=== PATIENT | female | born 1990 | race Caucasian/White ===

== ENCOUNTER 2018-03-26 16:07 | Emergency (ER) | payer MEDICAID ==
[~2018-03-26] VITALS: Ht 170.2 cm; Wt 69.2 kg
[~2018-03-26 16:07] MED LIST: NO HOME MEDS
[2018-03-26 16:15] VITALS: BP 117/81
[2018-03-26 16:39] LABS: CLARITY,URINE CLOUDY (Clear); GLUCOSE, URINE NEGATIVE (Neg); KETONES,URINE TRACE mg/dl (Neg); LEUKOCYTE ESTERASE ,URINE MODERATE (Neg); NITRITES, URINE NEGATIVE (Neg); OCCULT BLOOD,URINE LARGE (Neg); PROTEIN,URINE 100 mg/dl (Neg)
[2018-03-26 16:40] LABS: COLOR,URINE Amber (Yellow); UA COLLECTION TYPE CLN CATCH MIDSTREAM; URINE HCG NEGATIVE (NEG)
[2018-03-26] MEDS ORDERED: CEPH-572 PO (16:48)
[2018-03-26] MEDS ORDERED: PHEN-716 PO (16:48)
[2018-03-26 16:53] LABS: BACTERIA,URINE 1+ /HPF (Neg); MUCUS STRANDS MANY /LPF (Neg); RBC,URINE TNTC /HPF (0-2); SQUAMOUS EPITHELIAL CELL,UR MODERATE /LPF (FEW); TRANSITIONAL EPI CELLS,URINE FEW /HPF
== END 2018-03-26 17:05 | disposition home or self-care (01) ==
LOC: ER 16:08
DX: N39.0 Urinary tract infection, site not specified (principal); G89.29 Other chronic pain; Z79.899 Other long term (current) drug therapy
CPT/HCPCS: 81001; 81025; 87077; 87088; 87186; 99284

== ENCOUNTER 2018-11-05 19:31 | Emergency (ER) | payer MEDICAID ==
[~2018-11-05] VITALS: Ht 170.2 cm; Wt 61.3 kg
[~2018-11-05 19:31] MED LIST changes: +PHEN-716 PO
[2018-11-05 19:35] VITALS: BP 117/71
[2018-11-05] MEDS ORDERED: predniSONE 20 mg tablet PO ONE (20:30)
== END 2018-11-05 21:09 | disposition home or self-care (01) ==
LOC: ER 19:31
DX: O99.711 Diseases of the skin and subcutaneous tissue complicating pregnancy, first trimester (principal); R21 Rash and other nonspecific skin eruption; L29.9 Pruritus, unspecified; G89.29 Other chronic pain; F17.200 Nicotine dependence, unspecified, uncomplicated; Z79.899 Other long term (current) drug therapy; Z3A.12 12 weeks gestation of pregnancy
CPT/HCPCS: 99282; J7512

== ENCOUNTER 2019-11-14 11:28 | Emergency (ER) | payer MEDICAID ==
[~2019-11-14] VITALS: Ht 170.2 cm; Wt 62.0 kg
[2019-11-14 11:35] VITALS: BP 124/48
== END 2019-11-14 15:29 | disposition home or self-care (01) ==
LOC: ER 11:29
DX: B34.9 Viral infection, unspecified (principal); G89.29 Other chronic pain; Z79.899 Other long term (current) drug therapy
CPT/HCPCS: 99281

== ENCOUNTER 2020-07-16 19:44 | Emergency (ER) | payer MEDICAID ==
[~2020-07-16] VITALS: Ht 170.2 cm; Wt 60.0 kg
[2020-07-16 19:55] VITALS: BP 122/82
[2020-07-16] MEDS ORDERED: penicillin V potassium 500mg tablet PO ONE (20:35)
[2020-07-16] MEDS ORDERED: clindamycin 150mg capsule PO ONE (20:40)
[2020-07-16] MEDS ORDERED: CLIN150C2 PO (20:49)
== END 2020-07-16 20:56 | disposition home or self-care (01) ==
LOC: ER 19:45
DX: K04.7 Periapical abscess without sinus (principal); G89.29 Other chronic pain; K46.9 Unspecified abdominal hernia without obstruction or gangrene; Z87.448 Personal history of other diseases of urinary system; Z79.2 Long term (current) use of antibiotics; Z79.899 Other long term (current) drug therapy
CPT/HCPCS: 99283

== ENCOUNTER 2021-04-27 05:11 | Emergency (ER) | payer MEDICAID ==
[~2021-04-27] VITALS: Ht 170.2 cm; Wt 53.6 kg
[2021-04-27 05:15] VITALS: BP 97/54
--- NOTE | 2021-04-27 06:13 | NUR ---
WAITING IN [place] IN THE [place]ING [place]
[2021-04-27 07:52] LABS: BASOPHILS % (AUTO) 0.1 % (0-1); EOSINOPHILS % (AUTO) 0.6 % (0-6); HEMATOCRIT 37.4 % (35.0-45.0); HEMOGLOBIN 12.6 g/dl (12.0-16.0); LYMPHOCYTES # (AUTO) 1.5 X10'3 (1.1-4.8); LYMPHOCYTES % (AUTO) 22.3 % (21-51); MEAN CORPUSCULAR HEMOGLOBIN 30.3 PG (27.0-31.0); MEAN CORPUSCULAR HGB CONC 33.7 g/dL (33.0-36.5); MEAN PLATELET VOLUME 7.8 FL (7.4-10.4); MONOCYTES # (AUTO) 0.5 X10'3 (0-0.9); MONOCYTES % (AUTO) 6.9 % (2-12); NEUTROPHILS # (AUTO) 4.8 X10'3 (1.8-7.7); NEUTROPHILS % (AUTO) 70.1 % (42-75); PLATELET COUNT 187 X10'3 (140-440); RED BLOOD COUNT 4.16 X10'6 (4.20-5.60); RED CELL DISTRIBUTION WIDTH 13.1 % (11.5-14.5); WHITE BLOOD COUNT 6.9 X10'3 (4.5-11.0)
[2021-04-27 07:56] LABS: CLARITY,URINE CLEAR (Clear); COLOR,URINE YELLOW (Yellow); GLUCOSE, URINE NEGATIVE (Neg); KETONES,URINE NEGATIVE (Neg); LEUKOCYTE ESTERASE ,URINE NEGATIVE (Neg); NITRITES, URINE NEGATIVE (Neg); OCCULT BLOOD,URINE NEGATIVE (Neg); PH,URINE 6.5 (4.8-8.0); PROTEIN,URINE NEGATIVE (Neg)
[2021-04-27 07:57] LABS: UA COLLECTION TYPE CLN CATCH MIDSTREAM
[2021-04-27 08:01] LABS: URINE HCG NEGATIVE (NEG)
[2021-04-27 08:08] LABS: ANION GAP 7 (8-16); BLOOD UREA NITROGEN 13 MG/DL (7-18); BUN/CREATININE RATIO 18.6 (6.6-38.0); CALCIUM 8.2 MG/DL (8.5-10.1); CHLORIDE 106 MMOL/L (99-107); GLUCOSE 87 MG/DL (70-104); POTASSIUM 4.4 MMOL/L (3.5-5.1); SODIUM 140 MMOL/L (135-145); TOTAL CARBON DIOXIDE 26.6 MMOL/L (24-32); eGFR > 90 ML/MIN
[2021-04-27 08:09] LABS: ALANINE AMINOTRANSFERASE 177 U/L (12-78); ALBUMIN 3.9 G/DL (3.4-5.0); ALBUMIN/GLOBULIN RATIO 1.3 (1.1-1.5); ALKALINE PHOSPHATASE 78 IU/L (46-116); ASPARTATE AMINO TRANSFERASE 245 U/L (10-37); BILIRUBIN,TOTAL 0.6 MG/DL (0.1-1.0); LIPASE 130 U/L (73-393)
[2021-04-27] MEDS ORDERED: ketorolac trometh. 30mg/ml inj. IV ONE (08:45)
[2021-04-27] MEDS ORDERED: normal saline 1000ml 1,000 ML IV ONE (08:45)
[2021-04-27] MEDS ORDERED: IBUP-1985 PO (09:15)
== END 2021-04-27 10:30 | disposition home or self-care (01) ==
LOC: ER 05:12
DX: K81.9 Cholecystitis, unspecified (principal); R10.11 Right upper quadrant pain; G89.29 Other chronic pain; Z87.440 Personal history of urinary (tract) infections; Z79.899 Other long term (current) drug therapy
CPT/HCPCS: 36415; 76700; 80053; 81003; 81025; 83690; 85025; 96361; 96374; 99284; J1885; J7030

== ENCOUNTER 2021-09-10 13:35 | Emergency (ER) | payer MEDICAID ==
[~2021-09-10] VITALS: Ht 170.2 cm; Wt 54.0 kg
[~2021-09-10 13:35] MED LIST changes: +IBUP-1985 PO
[2021-09-10 13:43] VITALS: BP 114/72
== END 2021-09-10 19:41 | disposition left against medical advice (07) ==
LOC: ER 13:35
DX: L08.9 Local infection of the skin and subcutaneous tissue, unspecified (principal); Z53.21 Procedure and treatment not carried out due to patient leaving prior to being seen by health care provider

== ENCOUNTER 2023-03-03 20:42 | Emergency (ER) | payer MEDICAID ==
[~2023-03-03] VITALS: Ht 170.2 cm; Wt 56.8 kg
[2023-03-03 20:45] VITALS: BP 145/92
[2023-03-03] MEDS ORDERED: PENICILLIN G BENZATHINE 2,400,000 UNIT/4 ML SYRINGE IM STA (21:34)
[2023-03-03] MEDS ORDERED: CefTRIAXone 1000mg IM Kit (w/lidocaine diluent) IM STA (21:34)
[2023-03-03] MEDS ORDERED: DOXYCYCLINE 100MG CAPSULE PO ONE (21:35)
[2023-03-03] MEDS ORDERED: DOXY-411 PO (21:56)
[2023-03-03 23:18] LABS: URINE HCG NEGATIVE (NEG)
[2023-03-03 23:24] LABS: CLARITY,URINE SLIGHTLY CLOUDY (Clear); COLOR,URINE YELLOW (Yellow); GLUCOSE, URINE NEGATIVE (Neg); KETONES,URINE TRACE mg/dl (Neg); LEUKOCYTE ESTERASE ,URINE NEGATIVE (Neg); NITRITES, URINE NEGATIVE (Neg); OCCULT BLOOD,URINE NEGATIVE (Neg); PROTEIN,URINE NEGATIVE (Neg); UA COLLECTION TYPE VOIDED
[2023-03-03 23:31] LABS: BACTERIA,URINE FEW /HPF (Neg); CAL OXALATE CRYSTALS 2+ /HPF (NEGATIVE); MUCUS STRANDS MANY /LPF (Neg); RBC,URINE NONE SEEN /HPF (0-2); SQUAMOUS EPITHELIAL CELL,UR MANY /LPF (FEW)
== END 2023-03-03 22:13 | disposition home or self-care (01) ==
LOC: ER 20:43
DX: Z11.3 Encounter for screening for infections with a predominantly sexual mode of transmission (principal); N94.10 Unspecified dyspareunia; R30.9 Painful micturition, unspecified; G89.29 Other chronic pain; Z79.2 Long term (current) use of antibiotics; Z87.440 Personal history of urinary (tract) infections; Z87.19 Personal history of other diseases of the digestive system; Z79.899 Other long term (current) drug therapy
CPT/HCPCS: 36415; 81001; 81025; 86592; 87491; 87591; 96372; 99283; J0696

== ENCOUNTER 2023-05-21 18:41 | Emergency (ER) | payer MEDICAID ==
[~2023-05-21] VITALS: Ht 170.2 cm; Wt 56.8 kg
[2023-05-21 18:52] VITALS: BP 109/67; PULSE 122; RESP 18; TEMP 99.6; O2SAT 99
[2023-05-21] MEDS ORDERED: dexamethasone 4mg tablet PO ONE (21:05)
[2023-05-21] MEDS ORDERED: azithromycin 250mg tablet PO ONE (21:05)
[2023-05-21] MEDS ORDERED: PRED20TA PO (21:32)
[2023-05-21] MEDS ORDERED: IBUP-1985 PO (21:32)
[2023-05-21] MEDS ORDERED: AZIT-164 PO (21:32)
[2023-05-21] MEDS ORDERED: ALBU8HFA PO (21:32)
[2023-05-21] MEDS ORDERED: LORazepam 1 MG tablet PO ONE (22:05)
== END 2023-05-21 22:29 | disposition home or self-care (01) ==
LOC: ER 18:42
DX: U07.1 COVID-19 (principal); R09.81 Nasal congestion; Z79.2 Long term (current) use of antibiotics; Z79.1 Long term (current) use of non-steroidal anti-inflammatories (NSAID)
CPT/HCPCS: 36415; 87502; 87503; 87811; 99284

== ENCOUNTER 2023-10-12 14:37 | Emergency (ER) | payer MEDICAID ==
[~2023-10-12] VITALS: Ht 170.2 cm; Wt 57.0 kg
[2023-10-12 15:15] LABS: CLARITY,URINE Cloudy (Clear); COLOR,URINE ORANGE (Yellow); UA COLLECTION TYPE CLN CATCH MIDSTREAM
[2023-10-12 15:18] LABS: URINE HCG NEGATIVE (NEG)
[2023-10-12 15:24] LABS: MUCUS STRANDS MANY /LPF (Neg); SQUAMOUS EPITHELIAL CELL,UR MANY /LPF (FEW)
[2023-10-12 15:25] LABS: WBC,URINE 20-30 /HPF (0-4)
[2023-10-12 15:26] LABS: BACTERIA,URINE 1+ /HPF (Neg)
[2023-10-12] MEDS ORDERED: MUPI22OI30 TP (15:29)
[2023-10-12] MEDS ORDERED: CEPH500C2 PO (15:42)
[2023-10-12 16:01] VITALS: BP 114/72; PULSE 88; RESP 16; TEMP 98; O2SAT 97
== END 2023-10-12 16:03 | disposition home or self-care (01) ==
LOC: ER 14:38
DX: L03.116 Cellulitis of left lower limb (principal); G89.29 Other chronic pain; R35.0 Frequency of micturition; Z79.899 Other long term (current) drug therapy
CPT/HCPCS: 81001; 81025; 99283; A6258; A6449

== ENCOUNTER 2024-02-23 20:54 | Emergency (ER) | payer MEDICAID ==
[~2024-02-23] VITALS: Ht 170.2 cm; Wt 55.2 kg
[~2024-02-23 20:54] MED LIST changes: +CEPH500C2 PO; +MUPI22OI30 TP
[2024-02-23] MEDS ORDERED: CEPH-585 PO (23:59)
[2024-02-24] MEDS: bacitracin 15gm ointment TP ONE (00:08)
[2024-02-24 00:11] VITALS: BP 100/75; PULSE 88; RESP 18; TEMP 98.3; O2SAT 99
== END 2024-02-24 00:20 | disposition home or self-care (01) ==
LOC: ER 20:54
DX: L02.521 Furuncle right hand (principal); Z79.1 Long term (current) use of non-steroidal anti-inflammatories (NSAID); Z79.2 Long term (current) use of antibiotics; Z79.899 Other long term (current) drug therapy
CPT/HCPCS: 99283

== ENCOUNTER 2024-06-06 18:36 | Emergency (ER) | payer MEDICAID ==
[~2024-06-06] VITALS: Ht 170.2 cm; Wt 54.8 kg
[2024-06-06 18:52] VITALS: TEMP 97.7
[2024-06-06 19:31] LABS: BASOPHILS % (AUTO) 0.1 % (0-1); EOSINOPHILS # (AUTO) 0.1 X10'3 (0-0.9); HEMATOCRIT 37.5 % (35.0-45.0); HEMOGLOBIN 12.4 g/dl (12.0-16.0); LYMPHOCYTES # (AUTO) 1.6 X10'3 (1.1-4.8); LYMPHOCYTES % (AUTO) 27.9 % (21-51); MEAN CORPUSCULAR HEMOGLOBIN 30.9 PG (27.0-31.0); MEAN CORPUSCULAR HGB CONC 33.1 g/dL (33.0-36.5); MEAN CORPUSCULAR VOLUME 93.2 FL (78-98); MEAN PLATELET VOLUME 6.8 FL (7.4-10.4); MONOCYTES # (AUTO) 0.6 X10'3 (0-0.9); NEUTROPHILS # (AUTO) 3.4 X10'3 (1.8-7.7); PLATELET COUNT 232 X10'3 (140-440); RED BLOOD COUNT 4.02 X10'6 (4.20-5.60); RED CELL DISTRIBUTION WIDTH 13.5 % (11.5-14.5); WHITE BLOOD COUNT 5.6 X10'3 (4.5-11.0)
[2024-06-06 19:47] LABS: ALANINE AMINOTRANSFERASE 25 U/L (12-78); ALBUMIN 3.5 G/DL (3.4-5.0); ALKALINE PHOSPHATASE 56 IU/L (46-116); ANION GAP 12 (8-16); ASPARTATE AMINO TRANSFERASE 18 U/L (10-37); BILIRUBIN,TOTAL 0.1 MG/DL (0.1-1.0); BLOOD UREA NITROGEN 13 MG/DL (7-18); BUN/CREATININE RATIO 17.8 (10.0-20.0); CALCIUM 8.7 MG/DL (8.5-10.1); CHLORIDE 104 MMOL/L (99-107); CREATININE 0.73 MG/DL (0.40-0.90); GLUCOSE 96 MG/DL (70-104); POTASSIUM 3.1 MMOL/L (3.5-5.1); SODIUM 138 MMOL/L (135-145); TOTAL CARBON DIOXIDE 22.3 MMOL/L (24-32); TOTAL PROTEIN 7.1 G/DL (6.4-8.2); eCRCL 94 ML/MIN; eGFR > 90 ML/MIN
[2024-06-06 20:42] VITALS: BP 132/91; PULSE 107; RESP 16; O2SAT 92
[2024-06-06 20:58] LABS: BILIRUBIN,URINE NEGATIVE (Neg); CLARITY,URINE CLEAR (Clear); COLOR,URINE YELLOW (Yellow); GLUCOSE, URINE NEGATIVE (Neg); KETONES,URINE NEGATIVE (Neg); LEUKOCYTE ESTERASE ,URINE NEGATIVE (Neg); NITRITES, URINE NEGATIVE (Neg); OCCULT BLOOD,URINE NEGATIVE (Neg); PROTEIN,URINE NEGATIVE (Neg); UROBILINOGEN,URINE 0.2 E.U/dL (0.2-1.0)
[2024-06-06 21:00] LABS: UA COLLECTION TYPE CLN CATCH MIDSTREAM
[2024-06-06 21:03] LABS: URINE HCG NEGATIVE (NEG)
[2024-06-06 21:10] LABS: URINE AMPHETAMINE SCREEN POSITIVE (Neg); URINE BARBITUATE SCREEN NEGATIVE (Neg); URINE BENZODIAZEPINES SCREEN NEGATIVE (Neg); URINE CANNABINOID SCREEN POSITIVE (Neg); URINE COCAINE SCREEN NEGATIVE (Neg); URINE METHADONE SCREEN NEGATIVE (Neg); URINE OPIATE SCREEN NEGATIVE (Neg); URINE PHENCYCLIDINE SCREEN NEGATIVE (Neg)
[2024-06-09 11:13] LABS: CHLAMYDIA TRACHOMATIS, NAA Negative (Negative)
== END 2024-06-06 21:33 | disposition home or self-care (01) ==
LOC: ER 18:36
DX: M54.50 Low back pain, unspecified (principal); Z88.1 Allergy status to other antibiotic agents; Z88.6 Allergy status to analgesic agent; Z87.440 Personal history of urinary (tract) infections
CPT/HCPCS: 36415; 80053; 80305; 81003; 81025; 85025; 87491; 99283

== ENCOUNTER 2025-02-12 17:45 | Emergency (ER) | payer MEDICAID ==
[~2025-02-12] VITALS: Ht 165.1 cm; Wt 57.7 kg
[2025-02-12 17:49] VITALS: TEMP 97
[2025-02-12 18:47] LABS: HCG SERUM QL POSITIVE
--- NOTE | 2025-02-12 19:21 | Physician Documentation ---
History of Present Illness ~ Chief Complaint: Complications Stated Complaint: COMPLICATION Time Seen by MD: 19:08 Primary Medical Doctor: [facility] Source: patient Mode of Arrival: POV Exam Limitations: no limitations HPI Otherwise healthy in with spotting over the last couple of days. She states normally she has a period every month that is heavy and for the past couple months she has been having several small. Said it has been very light. She took 5 tests at home and they were all positive. No cramping or any other symptoms. States that she bled a lot with her 1st . She has an appointment with her doctor in 2 days. Medication Reconciliation Allergies: Coded Allergies: No Known Allergies (Unverified , 02/12/25) Miscellaneous Medications Home Med List (No Home Medications), (Reported) Discontinued Medications Cephalexin Monohydrate (Cephalexin), 1 CAP PO Q6H Discontinued Reason: completed med therapy Ibuprofen (Ibuprofen), 1 TAB PO Q8H Discontinued Reason: patient no longer taking Ibuprofen (Ibuprofen), 1 TAB PO Q8H Discontinued Reason: patient no longer taking Mupirocin* (Bactroban*), 1 APPLIC TP BID Discontinued Reason: patient no longer taking Phenazopyridine HCl (Pyridium), 1 TAB PO Q8H Discontinued Reason: patient no longer taking Past Medical History Past Medical History: Cholelithiasis, Hernia, UTI, Chronic Pain Past Surgical History: no surgical history Alcohol Use: None Lives with: Spouse Lives In: Home Review of Systems All Other Systems at this time: Reviewed and Negative Physical Exam Physical Exam Vital Signs: Temperature: 97.0, Source: Temporal, Heart Rate: 91, Respiratory Rate: 18, BP: 108/66, Pulse Oximetry: 100, Weight: 57.700 Physical Exam General: Alert and oriented x4, well-appearing, well-nourished, no acute distress HEENT: Normocephalic, atraumatic, no visible or palpable masses or depression, extraocular movements intact, PERRLA, no scleral icterus, Lungs: Clear , normal work of breathing Abdomen: Soft, nontender, Extremities: Full range of motion, Musculoskeletal: Normal gait, normal tone Neurologic: Cranial nerves 2-12 are intact, Psychiatric: Alert and oriented x4, judgment and insight normal, normal mood and affect Skin: Good turgor, no rashes Progress Results/Orders Results/Orders Completed Orders - PIPO MARSHALL MD Hcg Serum Qt (02/12/25 19:10) Cbc/Diff (02/12/25 19:10) Urinalysis, Cult If Indicated (02/12/25 19:10) Abo/Rh (02/12/25 19:10) Vital Signs 02/12/25 02/12/25 17:49 19:30 Temp 97.0 Pulse 91 65 Resp 18 15 B/P (MAP) 108/66 105/62 (76) Pulse Ox 100 99 Laboratory Tests Test 02/12/25 17:59 02/12/25 19:20 02/12/25 20:09 Human Chorionic Gonadotropin, Qual Positive White Blood Count 7.5 Red Blood Count 3.74 L Hemoglobin 11.4 L Hematocrit 33.8 L Mean Corpuscular Volume 90.4 Mean Corpuscular Hemoglobin 30.4 Mean Corpuscular Hemoglobin Concent 33.7 Red Cell Distribution Width 13.6 Platelet Count 220 Mean Platelet Volume 7.4 Neutrophils (%) (Auto) 55.9 Lymphocytes (%) (Auto) 34.9 Monocytes (%) (Auto) 7.2 Eosinophils (%) (Auto) 1.8 Basophils (%) (Auto) 0.2 Neutrophils # (Auto) 4.2 Lymphocytes # (Auto) 2.6 Monocytes # (Auto) 0.5 Eosinophils # (Auto) 0.1 Basophils # (Auto) 0.0 CBC Comment HCG Beta Subunit 410 Urine Specimen Description Cln catch midstream Urine Color Yellow Urine Clarity Clear Urine pH 7.5 Urine Specific [place] 1.020 Urine Protein Negative Urine Glucose (UA) Negative Urine Ketones Negative Urine Occult Blood Negative Urine Nitrite Negative Urine Bilirubin Negative Urine Urobilinogen 1.0 Urine Leukocyte Esterase Negative Urine Culture Indicated Not ind Volume Urine Centrifuged 10 ml Urine Comment Medical Decision Making Additional Comment Differential includes but isn't limited to: Normal bleeding in 1st trimester, miscarriage Departure Disposition: 01 HOME / SELF CARE / HOMELESS Impression: Primary Impression: First trimester bleeding Additional Impression Text Patient who is in with vaginal spotting. Beta quant is 410. CBC unremarkable and urinalysis unremarkable. Patient is B-positive blood type. Discharging home in good condition. May be first-trimester bleeding versus miscarriage. She does have follow-up coming up with her doctor. Recommend repeat quant. Return to the ER in the interim if new or worsening symptoms. Condition: Stable Discharge Instructions: Vaginal Bleeding During , First Trimester, [id number] Additional Instructions: Today your beta quant is 410. Follow-up with your doctor at some point after 48 hours and get a 2nd quant value to monitor this. Return to the ER if heavy bleeding or not doing well. Referrals: NO PRIMARY CARE PROVIDER (PCP) Education Educated: Patient Educated regarding: diagnosis, treatment, prognosis, need for follow up Signature Scribe Signature: No scribe Attestation: No [email or web address] Stratton MD Feb 12, 2025 19:21
[2025-02-12 19:30] VITALS: BP 105/62; PULSE 65; RESP 15; O2SAT 99
[2025-02-12 19:36] LABS: BASOPHILS % (AUTO) 0.2 % (0-1); EOSINOPHILS # (AUTO) 0.1 X10'3 (0-0.9); EOSINOPHILS % (AUTO) 1.8 % (0-6); HEMATOCRIT 33.8 % (35.0-45.0); HEMOGLOBIN 11.4 g/dl (12.0-16.0); LYMPHOCYTES # (AUTO) 2.6 X10'3 (1.1-4.8); LYMPHOCYTES % (AUTO) 34.9 % (21-51); MEAN CORPUSCULAR HEMOGLOBIN 30.4 PG (27.0-31.0); MEAN CORPUSCULAR HGB CONC 33.7 g/dL (33.0-36.5); MEAN CORPUSCULAR VOLUME 90.4 FL (78-98); MEAN PLATELET VOLUME 7.4 FL (7.4-10.4); MONOCYTES # (AUTO) 0.5 X10'3 (0-0.9); MONOCYTES % (AUTO) 7.2 % (2-12); NEUTROPHILS # (AUTO) 4.2 X10'3 (1.8-7.7); NEUTROPHILS % (AUTO) 55.9 % (42-75); PLATELET COUNT 220 X10'3 (140-440); RED BLOOD COUNT 3.74 X10'6 (4.20-5.60); RED CELL DISTRIBUTION WIDTH 13.6 % (11.5-14.5); WHITE BLOOD COUNT 7.5 X10'3 (4.5-11.0)
[2025-02-12 20:32] LABS: BILIRUBIN,URINE NEGATIVE (Neg); CLARITY,URINE CLEAR (Clear); COLOR,URINE YELLOW (Yellow); GLUCOSE, URINE NEGATIVE (Neg); KETONES,URINE NEGATIVE (Neg); LEUKOCYTE ESTERASE ,URINE NEGATIVE (Neg); NITRITES, URINE NEGATIVE (Neg); OCCULT BLOOD,URINE NEGATIVE (Neg); PH,URINE 7.5 (4.8-8.0); PROTEIN,URINE NEGATIVE (Neg)
[2025-02-12 20:34] LABS: UA COLLECTION TYPE CLN CATCH MIDSTREAM
== END 2025-02-12 21:17 | disposition home or self-care (01) ==
LOC: ER 17:46
DX: O20.8 Other hemorrhage in early pregnancy (principal); Z3A.01 Less than 8 weeks gestation of pregnancy
CPT/HCPCS: 36415; 81003; 84702; 84703; 85025; 86900; 86901; 99283

== ENCOUNTER 2025-07-05 21:34 | Emergency (ER) | payer MEDICAID ==
[~2025-07-05] VITALS: Ht 165.1 cm; Wt 63.7 kg
[~2025-07-05 21:34] MED LIST changes: -CEPH500C2 PO; -IBUP-1985 PO; -MUPI22OI30 TP; -PHEN-716 PO
[2025-07-05 21:39] VITALS: BP 130/82; PULSE 106; RESP 16; O2SAT 98
[2025-07-05] MEDS ORDERED: SULF1TAB49 PO (22:34)
--- NOTE | 2025-07-05 22:34 | Physician Documentation ---
History of Present Illness ~ Chief Complaint: Finger pain Stated Complaint: FINGER PAIN Time Seen by MD: 21:54 OK to notify your PCP?: Yes [facility] [place]: patient Mode of Arrival: POV Exam Limitations: no limitations HPI Presents for left ring finger pain. She reports that the nail and nail bed were pushed backwards yesterday and now there is some white fluid come out from underneath the nail bed. She does have artificial nails on as well. She has not taken any medication for the pain. 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 Medication Reconciliation Allergies: Coded Allergies: No Known Allergies (Unverified , 07/05/25) Scheduled Sulfamethoxazole/Trimethoprim (Bactrim Ds Tablet), 1 TAB PO Q12H Miscellaneous Medications Home Med List (No Home Medications), (Reported) Past Medical History Past Medical History: Cholelithiasis, Hernia, UTI, Chronic Pain Past Surgical History: no surgical history Last Menstrual Period: Jul 04, 2025 Alcohol Use: None Lives with: Spouse Lives In: Home Review of Systems All Other Systems at this time: Reviewed and Negative ROS She is presenting with a infection of the left ring finger nailbed. I have prescribed Bactrim due to her history of MRSA. We gave 1st dose here in the department the rest was sent to the pharmacy. She can give Tylenol and ib uprofen for pain relief at home. We discussed that the nail may fall off and that is normal and part of the healing process. Physical Exam Vital Signs: RN Vital Signs have been reviewed: Yes, Temperature: 97.8, Source: Oral, Heart Rate: 106, Respiratory Rate: 16, BP: 130/82, Pulse Oximetry: 98, Weight: 63.700 Pulse Oximetry Reflects: adequate oxygenation Physical Exam General: Alert, no distress. HEENT: No injection, moist mucous membranes. Neck: Full range of motion. Respiratory: No respiratory distress, equal chest rise and fall. Chest: No accessory muscle use. Cardiovascular: Regular rate and rhythm. Gastrointestinal: Nondistended. Extremities: Normal range of motion, no deformity. Left ring finger nail and artificial nail are bent backwards some. The nail bed is partially exposed with some purulent discharge. Normal sensation and finger. Neurologic: Oriented x4. Psychiatric: Normal mood and affect. Skin: Normal color, warm and dry. Progress Results/Orders Results/Orders Completed Orders - MEGAN,NANO D BIOTECHNICIAN Sulfamethox/Trimetho. Ds Tab ( Ds (07/05/25 22:25) Medications Received in ER Medications (Trade) Dose Ordered Sig/Kael Route PRN Reason Start Time Stop Time Status Last Admin Dose Admin ( DS tab) 1 tab ONCE ONCE PO 07/05/25 22:25 07/05/25 22:26 DC 07/05/25 22:45 1 TAB Vital Signs 07/05/25 07/05/25 21:39 22:37 Temp 97.8 97.8 Pulse 106 Resp 16 B/P (MAP) 130/82 Pulse Ox 98 Medical Decision Making Additional information obtaine: family Findings Her left ring finger nail bed he is partially exposed with some purulent discharge. There is some swelling of the tip of the finger as well. We discussed that the fingernail and artificial nail may fall off and this is part of the healing process. Physical exam is unremarkable both otherwise. No signs of sepsis. She is given follow up instructions as well as discharge instructi ons. First dose of Bactrim given here in the department. General Diff Dx:Considerations: Include: Fracture Shoulder Diff Dx:Consideration: Include: Other Elbow Diff Dx:Considerations: Include: Other Wrist Diff Dx:Considerations: Include: Other Hand Diff Dx:Considerations: Include: Other Finger Diff Dx:Considerations: Include: Fracture, Hematoma, Neurovascular injury Departure Disposition: HOME / SELF CARE / HOMELESS Impression: Primary Impression: Sprain Condition: Stable Discharge Instructions: Sprains Additional Instructions: Finger clean and dry. You may lose this nail. Take all antibiotics as pre scribed and finish the course. Referrals: NO PRIMARY CARE PROVIDER (PCP) Prescriptions Sulfamethoxazole/Trimethoprim (Bactrim Ds Tablet) 800 Mg-160 Mg Tablet 1 TAB PO Q12H for 10 Days, #20 TAB Prov: NANO CABRERA 07/05/25 Education Educated: Patient Educated regarding: diagnosis, treatment, prognosis, need for follow up Additional Comment Medical Screen Exam This patient recieved a medical screening examination. After reviewing the individual's medical complaints with presenting symptoms and performing an appropriate physical examination, it was determined that no immediate life- threatening emergency medical condition is present. This individual is also not a women having contractions. Signature Scribe Signature: . Attestation: Scribed for Nano Cabrera Credit Risk Management Director by Nano Carlson NP . 07/05/25 23:40 Parts of this note were created using [employer] voice recognition software program. While efforts were made to correct any mistakes made by this voice recognition software program, nonsensical phrases may remain in this note. In addition, there may be errors and syntax, grammar, content and spelling. NANO CABRERA BIOTECHNICIAN Jul 05, 2025 22:34
[2025-07-05 22:37] VITALS: TEMP 97.8
[2025-07-05] MEDS: sulfamethoxazole/trimethoprim DS (800/160mg) tablet PO ONE (22:45)
== END 2025-07-05 22:46 | disposition home or self-care (01) ==
LOC: ER 21:34
DX: S63.615A Unspecified sprain of left ring finger, initial encounter (principal); X58.XXXA Exposure to other specified factors, initial encounter; Y93.89 Activity, other specified; Y92.89 Other specified places as the place of occurrence of the external cause; Y99.8 Other external cause status
CPT/HCPCS: 99283

== ENCOUNTER 2025-07-31 19:53 | Emergency (ER) | payer MEDICAID ==
[~2025-07-31] VITALS: Ht 165.1 cm; Wt 59.1 kg
[2025-07-31 20:21] VITALS: BP 101/68; PULSE 124; RESP 16; O2SAT 100
--- NOTE | 2025-07-31 20:29 | Physician Documentation ---
History of Present Illness ~ General Chief Complaint: Multiple Medical Complaints Stated Complaint: SEE CHIEF COMP Time Seen by MD: 20:29 Primary Medical Doctor: [facility] History of Present Illness Initial Comments 34-year-old female who presents to the emergency department for evaluation of dental pain and L plantar surface forefoot pain with suspected foreign body. Symptom has been present for several days. Medication Reconciliation Allergies: Coded Allergies: No Known Allergies (Unverified , 07/05/25) Scheduled Amox Tr/Potassium Clavulanate 875/125 MG (Augmentin 875/125 MG), 1 TAB PO BID Ibuprofen* (Motrin*), 1 TAB PO Q8H Miscellaneous Medications Home Med List (No Home Medications), (Reported) Past Medical History Past Medical History: Cholelithiasis, Hernia, UTI, Chronic Pain Past Surgical History: no surgical history Alcohol Use: None Lives with: Spouse Lives In: Home Review of Systems All Other Systems at this time: Reviewed and Negative Physical Exam Physical Exam Vital Signs: Heart Rate: 124, Respiratory Rate: 16, BP: 101/68, Pulse Oximetry: 100, Weight: 59.090 General Appearance: alert, WD/WN, other (anxious) Head: normal inspection Face: normal inspection Pupils/EOM/Fundus: PERRLA Oropharynx: other (dental caries without periodontal abscess or periapical abscess) Respiratory: lungs clear Chest: no accessory muscle use Cardiovascular: regular rate, rhythm Extremities: normal range of motion, other (small plpble FB tooplantar surface left forfeoot) Neurologic: oriented x4 Motor / Sensory: no motor deficit, no sensory deficit Psychiatric: normal mood/affect Skin: normal color Progress Results/Orders Results/Orders Completed Orders - MARVA HUERTA Amox Tr/Potassium Clavulanate (Augmentin (07/31/25 20:35) Medications Received in ER Medications (Trade) Dose Ordered Sig/Kael Route PRN Reason Start Time Stop Time Status Last Admin Dose Admin (Augmentin 875-125mg tablet) 1 tab ONCE ONCE PO 07/31/25 20:35 07/31/25 20:43 DC 07/31/25 20:49 1 TAB Vital Signs 07/31/25 20:21 Pulse 124 Resp 16 B/P (MAP) 101/68 Pulse Ox 100 Medical Decision Making Additional information obtaine: N/A Findings Examination history consistent with a foreign body to the plantar surface of the left foot. Shared decision-making regarding Epsom salt soaks prior to elective exploratory removal. Patient to begin antibiotic Augmentin for dental infection and empirically for the forefoot foreign body without lymphangitis. Ibuprofen and 1st dose antibiotic provided the emergency department tonight. Safely discharge. Differential Diagnosis Differentials considered not limited to, infected foreign body, cellulitis, abscess,. Dental abscess, periapical abscess, Jose's angina angioedema Departure Disposition: HOME / SELF CARE / HOMELESS Impression: Primary Impression: Foreign body foot/toe Additional Impression: Dentalgia Condition: Improved Additional Instructions: Please obtain and make it begin prescriptions as directed. Please continue to soak her foot and follow up with the primary care physician and dentist if symptoms worsen. Thank you for visiting emergency department [facility]. Referrals: NO PRIMARY CARE PROVIDER (PCP) Prescriptions Ibuprofen* (Motrin*) 400 Mg Tablet 1 TAB PO Q8H for pain or fever for 10 Days, #30 TAB Prov: MARVA HUERTA 07/31/25 Amox Tr/Potassium Clavulanate 875/125 MG (Augmentin 875/125 MG) 875 Mg-125 Mg Tablet 1 TAB PO BID, #20 TAB Prov: MARVA HUERTA 07/31/25 Education Educated: Patient Educated regarding: diagnosis, treatment, prognosis, need for follow up Signature Scribe Signature: . Attestation: . MARVA HUERTA Jul 31, 2025 20:29
[2025-07-31] MEDS ORDERED: AMOX-580 PO (20:36)
[2025-07-31] MEDS ORDERED: IBUP-1984 PO (20:36)
[2025-07-31] MEDS: amox tr/potassium clavulanate 875/125mg TAB PO ONE (20:49)
== END 2025-07-31 20:49 | disposition home or self-care (01) ==
LOC: ER 19:54
DX: S90.852A Superficial foreign body, left foot, initial encounter (principal); K02.9 Dental caries, unspecified; G89.29 Other chronic pain; Z87.440 Personal history of urinary (tract) infections; Z79.899 Other long term (current) drug therapy; W45.8XXA Other foreign body or object entering through skin, initial encounter; Y93.89 Activity, other specified; Y92.89 Other specified places as the place of occurrence of the external cause; Y99.8 Other external cause status
CPT/HCPCS: 99284